=== PATIENT | female | born 1960 ===

== ENCOUNTER 2024-07-13 07:20 | Day surgery (SDC) | payer OTHER ==
[2024-07-13] VITALS (12 sets, daily range): BP systolic 110–174; BP diastolic 71–117
[~2024-07-13] VITALS: Ht 160 cm; Wt 100.3 kg
[~2024-07-13 07:20] MED LIST: ESOM20 PO; FAMO20 PO
[2024-07-13] MEDS ORDERED: CeFAZolin Sodium 2,000 MG in NS 100 ML IV SCH ×2 (07:40→18:00)
[2024-07-13] MEDS ORDERED: Chlorhexidine Mouth Care 15 ML UDC MT SCH (07:40)
[2024-07-13] MEDS ORDERED: Lactated Ringer's 1,000 ML IV SCH ×2 (07:40→09:45)
[2024-07-13] MEDS ORDERED: Acetaminophen 500 MG Tab PO SCH ×2 (07:40→16:00)
[2024-07-13] MEDS ORDERED: OxyCODONE HCL 10 MG TABCR PO SCH (07:40)
[2024-07-13] MEDS ORDERED: Ropivacaine 0.5% HCl/Pf 123.125 MG,EPINEPHrine HCL 0.25 MG,Ketorolac Tromethamine 15 MG... INFIL SCH (07:40)
[2024-07-13] MEDS ORDERED: Tranexamic Acid 100 ML IV SCH (07:40)
--- NOTE | 2024-07-13 09:16 | NUR ---
.History, Chart, Medications and Allergies reviewed before start of procedure. Pre-Op teaching done. Pt verbalizes understanding. Ambulatory in Day Surgery WITH STEADY GAIT. PT STATES HAS DENTURES IN BUT THEY ARE IMPLANTED IN SO THEY DO NOT GET REMOVED. PT GAVE GLASSES AND RING TO AT BEDSIDE.
[2024-07-13] MEDS ORDERED: Midazolam HCl 1MG / ML 2ML Vial IV SCH (09:20)
[2024-07-13] MEDS ORDERED: Promethazine HCl 25 MG Tab PO PRN (09:35)
[2024-07-13] MEDS ORDERED: Bisacodyl 10 MG Supp PR PRN (09:35)
[2024-07-13] MEDS ORDERED: OxyCODONE HCL 5 MG TAB PO PRN ×2 (09:40)
[2024-07-13] MEDS ORDERED: Magnesium Hydroxide Conc 10 ML UDC PO PRN (09:40)
[2024-07-13] MEDS ORDERED: HYDROmorphone HCl/Pf 1MG SYR IV PRN (09:40)
[2024-07-13] MEDS ORDERED: DiphenhydrAMINE HCL 25 MG Cap PO PRN (09:40)
[2024-07-13] MEDS ORDERED: Metoclopramide HCl 5MG / ML 2ML Vial IV PRN (09:45)
[2024-07-13] MEDS ORDERED: Ondansetron HCl 2 MG / ML 2ML Vial IV PRN (09:45)
[2024-07-13] MEDS ORDERED: propofoL 20 ML IV ONE (10:09)
[2024-07-13] MEDS ORDERED: FentaNYL Citrate 50 MCG/ML 2 ML Injection ONE ×2 (10:09→10:44)
[2024-07-13] MEDS ORDERED: Ondansetron HCl 2 MG / ML 2ML Vial ONE (10:18)
[2024-07-13] MEDS ORDERED: Dexamethasone Sod Phos 10 MG/ML 1ML VIAL ONE (10:18)
[2024-07-13] MEDS ORDERED: Labetalol HCL 5 MG/ML 4ML Injection (Single Dose) ONE (10:51)
[2024-07-13] MEDS ORDERED: Ketorolac Tromethamine 30mg Vial ONE (11:28)
[2024-07-13] MEDS ORDERED: HYDROmorphone HCl/Pf 1MG SYR ONE ×3 (11:28→12:29)
[2024-07-13] MEDS ORDERED: Ketorolac Tromethamine 15mg Vial IV SCH (12:00)
[2024-07-13] MEDS ORDERED: ASPI81CH PO (17:22)
--- NOTE | 2024-07-13 18:35 | NUR ---
DISCHARGE PT HAS WORKED w/ THERAPY. PAIN WELL CONTROLLED. DRINKING FLUIDS BUT NAUSEATED. REPORTS HAS CHRONIC N/V & FEELS COMFORTABLE & WANTS TO GO HOME. VOIDING WELL. BRAEDEN & POLAR PACK SENT w/ PT. ESCORTED OUT VIA W/C.
[2024-07-13] MEDS ORDERED: Docusate Sodium 100 MG Cap PO SCH (21:00)
[2024-07-14] MEDS ORDERED: Omeprazole 20 MG CapCR PO SCH (06:00)
[2024-07-14] MEDS ORDERED: Famotidine 20 MG Tab PO SCH (09:00)
[2024-07-14] MEDS ORDERED: Aspirin 81 MG Chew PO SCH (09:00)
== END 2024-07-13 18:35 | disposition home or self-care (01) ==
LOC: ORSCMMR 07:20 → ORD 09:15 → ORSCMMR 09:15 → SURS 13:08 → ORSCMMR 13:08 → SURS 18:35
PROVIDERS: Orthopaedic Surgery
PROC: 0SRC0JA Replacement of Right Knee Joint with Synthetic Substitute, Uncemented, Open Approach (ICD-10-PCS; principal; 2024-07-13 09:15)
DX: M17.11 Unilateral primary osteoarthritis, right knee (principal); G47.33 Obstructive sleep apnea (adult) (pediatric); K21.9 Gastro-esophageal reflux disease without esophagitis; E66.9 Obesity, unspecified; Z68.39 Body mass index [BMI] 39.0-39.9, adult
CPT/HCPCS: 73560-RT; 97110; 97116; 97162; A9270; C1776; J0171; J0690; J0735; J1100; J1170; J1885; J2250; J2405; J2704; J2765; J2795; J3010; J7120

== ENCOUNTER 2024-12-15 09:19 | Day surgery (SDC) | payer OTHER ==
[~2024-12-15] VITALS: Ht 161 cm; Wt 96.8 kg
[~2024-12-15 09:19] MED LIST changes: +ASPI81CH PO; +Lactated Ringer's 1,000 ML IV SCH
[2024-12-15] MEDS ORDERED: Lidocaine HCl 4% 5 ML SDA INH ONE (10:00)
[2024-12-15 10:19] VITALS: BP 132/85
--- NOTE | 2024-12-15 10:26 | NUR ---
History, Chart, Medications and Allergies reviewed before start of procedure. Patient up to Ambulate independently. Gait steady. Pre-Op teaching done. Pt verbalizes understanding. Patient confirms NPO status and agrees with scheduled surgery. Patient states colon prep results clear. Patient States Post-Procedure ride home has been arranged.
[2024-12-15] MEDS ORDERED: propofoL 60 ML IV ONE (10:32)
--- NOTE | 2024-12-15 10:57 | NUR ---
12/15/24 1057 Kymberly Pressley MONITOR INTACT WITH CONTINUOUS PULSE OXIMETRY, CONTINUOUS END TITAL CO2, AND INTERMITTENT BLOOD PRESSURE. O2 VIA POM INTACT THROUGHOUT SEDATION/PROCEDURE. SEE DR. FARNSWORTH'S SEDATION RECORD
[2024-12-15 11:24] VITALS: BP 141/81
[2024-12-15 11:30] VITALS: BP 120/76
[2024-12-15 11:45] VITALS: BP 128/83
--- NOTE | 2024-12-15 11:58 | NUR ---
Patient up to Ambulate independently. Gait steady. Discharge instructions reviewed with patient. Patient verbalizes understanding. Copy given to patient to take home, [facility]. Patient States Post-Procedure ride home has been arranged. Discharged via wheelchair to private car for ride home. PT DENIES PAIN,N/V,SOB. TOLERATING PO. REPORTS READY TO GO HOME.
== END 2024-12-15 11:58 | disposition home or self-care (01) ==
LOC: ORSCMMR 09:19 → ORD 10:00 → ORSCMMR 10:00
PROVIDERS: Internal Medicine Gastroenterology
PROC: 0DJD8ZZ Inspection of Lower Intestinal Tract, Via Natural or Artificial Opening Endoscopic (ICD-10-PCS; principal; 2024-12-15 10:00)
PROC: 0DB78ZX Excision of Stomach, Pylorus, Via Natural or Artificial Opening Endoscopic, Diagnostic (ICD-10-PCS; principal; 2024-12-15 10:00)
PROC: 0DB48ZX Excision of Esophagogastric Junction, Via Natural or Artificial Opening Endoscopic, Diagnostic (ICD-10-PCS; principal; 2024-12-15 10:00)
PROC: 0DB98ZX Excision of Duodenum, Via Natural or Artificial Opening Endoscopic, Diagnostic (ICD-10-PCS; principal; 2024-12-15 10:00)
DX: R11.2 Nausea with vomiting, unspecified (principal); R19.5 Other fecal abnormalities; R23.4 Changes in skin texture; K21.9 Gastro-esophageal reflux disease without esophagitis; K44.9 Diaphragmatic hernia without obstruction or gangrene; K57.30 Diverticulosis of large intestine without perforation or abscess without bleeding; Z87.891 Personal history of nicotine dependence; G47.33 Obstructive sleep apnea (adult) (pediatric); E66.9 Obesity, unspecified; Z68.37 Body mass index [BMI] 37.0-37.9, adult; Z79.899 Other long term (current) drug therapy
CPT/HCPCS: 88305; 88312; 88342; J2003; J2704; J7120